=== PATIENT | female | born 1995 | race Caucasian/White ===

== ENCOUNTER 2016-12-06 21:09 | Emergency (ER) | payer OTHER ==
[2016-12-06 21:15] VITALS: TEMP 98.2
--- NOTE | 2016-12-06 21:22 | CPEKG ---
Heart Rate: 77 RR Interval: 779 P-R Interval: 160 QRSD Interval: 78 QT Interval: 348 QTC Interval: 394 P Raymond: 29 QRS Raymond: 50 T Wave Raymond: 34 EKG Severity - NORMAL ECG - EKG Impression: SINUS RHYTHM Electronically Signed By: Vamshi Campos 07-Dec-2016 06:46:10
--- NOTE | 2016-12-06 21:44 | EDPHY ---
H & P Stated Complaint: CP left ant chest x3 hours began at work Time Seen by Provider: 12/06/16 21:16 HPI/ROS: HPI CHIEF COMPLAINT: Chest pain times 4 hours HISTORY OF PRESENT ILLNESS: This patient very pleasant 21-year-old female, no significant medical history does not take any daily medications she presents emergency room by private vehicle after she developed discomfort across her anterior chest she describes a dull ache in that at times sharp in nature it radiates from the right side of her chest all the way to the left side of her chest. She has no nausea vomiting fever pleuritic pain shortness of breath associated with this. 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 She tells me she has had this happen to her before however she can't concentrate on her breathing and it resolved on its own. She denies history of DVT or PE, denies history of premature coronary artery disease or cardiac history in her family. She denies pleuritic pain. She has not been sick. No fever. No cough. Past Medical History: No significant medical history Past Surgical History: No significant surgical history Social History: Denies daily use of drugs alcohol tobacco products, delivers pizza Family History: noncontributory ROS REVIEW OF SYSTEMS: A comprehensive 10 point review of systems is otherwise negative aside from elements mentioned in the history of present illness. Exam Constitutional appears well nontoxic triage nursing summary reviewed, vital signs reviewed, awake/alert. Eyes normal conjunctivae and sclera, EOMI, PERRLA. HENT normal inspection, atraumatic, moist mucus membranes, no epistaxis, neck supple/ no meningismus, no raccoon eyes. Respiratory clear to auscultation bilaterally, normal breath sounds, no respiratory distress, no wheezing. Cardiovascular chest wall: nontender to palpation. rate normal, regular rhythm , no murmur, no edema, distal pulses normal. Gastrointestinal soft, non-tender, no rebound, no guarding, normal bowel sounds, no distension, no pulsatile mass. Genitourinary no CVA tenderness. Musculoskeletal no midline vertebral tenderness, full range of motion, no calf swelling, no tenderness of extremities, no meningismus, good pulses, neurovascularly intact. Skin pink, warm, & dry, no rash, skin atraumatic. Neurologic awake, alert and oriented x 3, AAOx3, moves all 4 extremities equally, motor intact, sensory intact, CN II-XII intact, normal cerebellar, normal vision, normal speech. Psychiatric normal mood/affect. Heme/Lymph/Immune no lymphadenopathy. Differential diagnosis includes but is not limited to: atypical chest pain, pleurisy, esophageal spasms, GERD, gastritis pneumothorax, pneumonia, pulmonary embolism, aortic dissection, congestive heart failure, tumor, musculoskeletal pain, esophageal pain, GERD, peptic ulcer disease, pancreatitis, doubt ACS Medical Decision Making:Plan for this patient she will be placed on full cardiac monitor technician she will have an IV established will need EKG and chest x-ray. She will be given a GI cocktail. And will re-evaluate. Re-evaluation: EKG interpretation by me on record in [employer] system. Impression time of EKG 09/27/2020, this is sinus rhythm rate of 77 no acute ischemic changes specifically no ST elevation, ST depression T-wave abnormalities. No prolonged intervals. Unremarkable EKG. ED x-ray chest two view: negative for acute cardiopulmonary disease. Image interpreted by myself. [id number]: Re-evaluation at this time this patient is resting comfortably no acute distress. Chest pain is resolved after GI cocktail and IV Toradol. EKG is nonischemic D-dimer negative troponin negative chest x-ray unremarkable. This is not ACS or cardiac chest pain most likely GI related. Given that she appears well her studies are normal I will allow her to go home she does understand return emergency room if she develops worsening abdominal pain, fever or vomiting. Source: Patient - Personal History LMP (Females 10-55): Extended Cycle BCP/Inj Current Tetanus/Diphtheria Vaccine: Yes Current Tetanus Diphtheria and Acellular Pertussis (TDAP): Yes Tetanus Vaccine Date: 2012 - Medical/Surgical History Hx Asthma: No Hx Chronic Respiratory Disease: No Hx Diabetes: No Hx Cardiac Disease: No Hx Renal Disease: No Hx Cirrhosis: No Hx Alcoholism: No Hx HIV/AIDS: No Hx Splenectomy or Spleen Trauma: No Other PMH: no PMH. no PSH - Social History Smoking Status: Never smoked Constitutional: Initial Vital Signs Temperature (C) 36.8 C 12/06/16 21:13 Heart Rate 85 12/06/16 21:13 Respiratory Rate 16 12/06/16 21:13 Blood Pressure 145/97 H 12/06/16 21:13 O2 Sat (%) 96 12/06/16 21:13 O2 Delivery Mode Room Air Allergies/Adverse Reactions: No Known Allergies Allergy (Unverified 12/06/16 21:12) Home Medications: Medication Instructions Recorded Control Implant 12/06/16 Medical Decision Making - Data Points Laboratory Results: Laboratory Results 12/06/16 22:30 12/06/16 22:30 12/06/16 12/06/16 12/06/16 22:30 22:30 22:30 WBC RBC Hgb Hct MCV MCH MCHC RDW Plt Count MPV Neut % (Auto) Lymph % (Auto) [place] % (Auto) Eos % (Auto) Baso % (Auto) Nucleat RBC Rel Count Absolute Neuts (auto) Absolute Lymphs (auto) Absolute Monos (auto) Absolute Eos (auto) Absolute Basos (auto) Absolute Nucleated RBC Immature Gran % Immature Gran # PT 13.3 SEC SEC (12.0-15.0) INR 1.02 (0.83-1.16) APTT 36.9 SEC SEC (23.0-38.0) D-Dimer < 0.27 ug/mLFEU ug/mLFEU (0.00-0.50) Sodium 139 mEq/L mEq/L (134-144) Potassium 4.1 mEq/L mEq/L (3.5-5.2) Chloride 102 mEq/L mEq/L (97-110) Carbon Dioxide 24 mEq/l mEq/l (22-31) Anion Gap 13 mEq/L mEq/L (8-16) BUN 9 mg/dL mg/dL (7-23) Creatinine 0.8 mg/dL mg/dL (0.6-1.0) Estimated GFR > 60 Glucose 81 mg/dL mg/dL (70-100) Calcium 9.5 mg/dL mg/dL (8.5-10.4) Magnesium 2.1 mg/dL mg/dL (1.6-2.3) Total Bilirubin 0.6 mg/dL mg/dL (0.1-1.4) Conjugated Bilirubin 0.4 mg/dL mg/dL (0.0-0.5) Unconjugated Bilirubin 0.2 mg/dL mg/dL (0.0-1.1) AST 21 IU/L IU/L (14-46) ALT 34 IU/L IU/L (9-52) Alkaline Phosphatase 110 IU/L IU/L (38-126) Creatine Kinase 100 IU/L IU/L (0-156) CK-MB (CK-2) Fraction 0.39 ng/mL ng/mL (0-3.19) Troponin I < 0.012 ng/mL ng/mL (0-0.034) NT-Pro-B Natriuret Pep 19 pg/mL pg/mL (0-125) Total Protein 7.5 g/dL g/dL (6.3-8.2) Albumin 4.3 g/dL g/dL (3.5-5.0) Lipase 229.0 IU/L IU/L (23-300) Beta HCG, Qual NEGATIVE 12/06/16 22:30 WBC 10.68 10^3/uL H 10^3/uL (3.80-9.50) RBC 5.31 10^6/uL 10^6/uL (4.18-5.33) Hgb 14.3 g/dL g/dL (12.6-16.3) Hct 43.2 % % (38.0-47.0) MCV 81.4 fL L fL (81.5-99.8) MCH 26.9 pg L pg (27.9-34.1) MCHC 33.1 g/dL g/dL (32.4-36.7) RDW 12.9 % % (11.5-15.2) Plt Count 382 10^3/uL 10^3/uL (150-400) MPV 9.5 fL fL (8.7-11.7) Neut % (Auto) 62.6 % % (39.3-74.2) Lymph % (Auto) 29.4 % % (15.0-45.0) [place] % (Auto) 6.4 % % (4.5-13.0) Eos % (Auto) 0.8 % % (0.6-7.6) Baso % (Auto) 0.5 % % (0.3-1.7) Nucleat RBC Rel Count 0.0 % % (0.0-0.2) Absolute Neuts (auto) 6.69 10^3/uL H 10^3/uL (1.70-6.50) Absolute Lymphs (auto) 3.14 10^3/uL H 10^3/uL (1.00-3.00) Absolute Monos (auto) 0.68 10^3/uL 10^3/uL (0.30-0.80) Absolute Eos (auto) 0.09 10^3/uL 10^3/uL (0.03-0.40) Absolute Basos (auto) 0.05 10^3/uL 10^3/uL (0.02-0.10) Absolute Nucleated RBC 0.00 10^3/uL 10^3/uL (0-0.01) Immature Gran % 0.3 % % (0.0-1.1) Immature Gran # 0.03 10^3/uL 10^3/uL (0.00-0.10) PT INR APTT D-Dimer Sodium Potassium Chloride Carbon Dioxide Anion Gap BUN Creatinine Estimated GFR Glucose Calcium Magnesium Total Bilirubin Conjugated Bilirubin Unconjugated Bilirubin AST ALT Alkaline Phosphatase Creatine Kinase CK-MB (CK-2) Fraction Troponin I NT-Pro-B Natriuret Pep Total Protein Albumin Lipase Beta HCG, Qual Medications Given: Discontinued Medications Al Hydroxide/Mg Hydroxide (Maalox Susp) 30 ml PO ONCE ONE Stop: 12/06/16 21:50 Last Admin: 12/06/16 22:15 Dose: 30 ml Hyoscyamine Sulfate (Levsin, Hyomax-Sl) 0.25 mg PO ONCE ONE Stop: 12/06/16 21:50 Last Admin: 12/06/16 22:15 Dose: 0.25 mg Sodium Chloride (Ns) 500 mls @ 0 mls/hr IV ONCE ONE PRN Reason: As Directed Stop: 12/06/16 21:49 Last Admin: 12/06/16 22:22 Dose: 500 mls Ketorolac Tromethamine (Toradol) 30 mg IVP EDNOW ONE Stop: 12/06/16 22:35 Last Admin: 12/06/16 22:40 Dose: 30 mg Lidocaine (Lidocaine 2% Viscous) 15 ml PO ONCE ONE Stop: 12/06/16 21:50 Last Admin: 12/06/16 22:18 Dose: 15 ml Departure - Departure Disposition: Home, Routine, Self-Care Clinical Impression: Non-cardiac chest pain Condition: Good Instructions: Noncardiac Chest Pain (ED) Additional Instructions: 1. Make sure to stay well-hydrated. 2. please return emergency room if develops worsening chest pain, shortness of breath, abdominal pain fever or vomiting. Return if you have any questions or concerns or worsening of condition. Referrals: NONE *PRIMARY CARE P,. [Primary Care Provider] - As per Instructions
[2016-12-06] MEDS ORDERED: NS 500 ML IV ONE (21:48)
[2016-12-06] MEDS ORDERED: HYOSCYAMINE SULFATE 0.125 MG TAB PO ONE (21:49)
[2016-12-06] MEDS ORDERED: MAG HYDROX/AL HYDROX/SIMETH 30 ML UDCUP PO ONE (21:49)
[2016-12-06] MEDS ORDERED: LIDOCAINE 2% VISCOUS 15 ML UDCUP PO ONE (21:49)
[2016-12-06] MEDS ORDERED: KETOROLAC 30 MG/1 ML SDV IVP ONE (22:34)
[2016-12-06 22:42] LABS: % IMMATURE GRANULYOCYTES 0.3 % (0.0-1.1); ABSOLUTE IMMATURE GRANULOCYTES 0.03 10^3/uL (0.00-0.10); ADD DIFF? NO; ADD MORPH? NO; ADD SCAN? NO; ATYPICAL LYMPHOCYTE FLAG 20 (0-99); FRAGMENT RBC FLAG 0 (0-99); HEMATOCRIT 43.2 % (38.0-47.0); HEMOGLOBIN 14.3 g/dL (12.6-16.3); LEFT SHIFT FLG 0 (0-99); LIPEMIA HEMOLYSIS FLAG 80 (0-99); MEAN CELL HEMOGLOBIN 26.9 pg (27.9-34.1); MEAN CELL HEMOGLOBIN CONCENTR. 33.1 g/dL (32.4-36.7); MEAN CELL VOLUME 81.4 fL (81.5-99.8); MEAN PLATELET VOLUME 9.5 fL (8.7-11.7); PLATELET CLUMPS FLAG 10 (0-99); PLATELET COUNT 382 10^3/uL (150-400); RED BLOOD CELL COUNT 5.31 10^6/uL (4.18-5.33); RED CELL DISTRIBUTION WIDTH 12.9 % (11.5-15.2)
[2016-12-06 22:49] LABS: INR 1.02 (0.83-1.16); PROTIME(PATIENT) 13.3 SEC (12.0-15.0)
[2016-12-06 22:50] LABS: APTT 36.9 SEC (23.0-38.0)
[2016-12-06 22:57] LABS: ALANINE AMINOTRANSFERASE 34 IU/L (9-52); ALBUMIN 4.3 g/dL (3.5-5.0); ALKALINE PHOSPHATASE 110 IU/L (38-126); ANION GAP 13 mEq/L (8-16); ASPARTATE AMINOTRANSFERASE 21 IU/L (14-46); BILIRUBIN,TOTAL 0.6 mg/dL (0.1-1.4); BILIRUBIN-CONJUGATED 0.4 mg/dL (0.0-0.5); BILIRUBIN-UNCONJUGATED 0.2 mg/dL (0.0-1.1); CALCIUM 9.5 mg/dL (8.5-10.4); CARBON DIOXIDE 24 mEq/l (22-31); CHLORIDE 102 mEq/L (97-110); CREATININE 0.8 mg/dL (0.6-1.0); GLOMERULAR FILTRATION RATE > 60; GLUCOSE 81 mg/dL (70-100); MAGNESIUM 2.1 mg/dL (1.6-2.3); POTASSIUM 4.1 mEq/L (3.5-5.2); SODIUM 139 mEq/L (134-144); TOTAL PROTEIN 7.5 g/dL (6.3-8.2)
[2016-12-06 23:04] VITALS: BP 125/76
[2016-12-06 23:09] LABS: CREATINE KINASE-MB FRACTION 0.39 ng/mL (0-3.19); TROPONIN I < 0.012 ng/mL (0-0.034)
[2016-12-06 23:50] VITALS: PULSE 76; RESP 17; O2SAT 97
== END 2016-12-06 23:50 | disposition home or self-care (01) ==
DX: R07.89 Other chest pain (principal)
CPT/HCPCS: 96374; J1885